=== PATIENT | female | born 2000 ===

== ENCOUNTER → 2020-05-13 10:49 | Outpatient (BNVA) | payer OTHER, SELFPAY | PROVIDERS: Family Provider Family Medicine; PCP Family Medicine; Visit Provider Family Medicine | DX: R30.0 Dysuria (principal) | CPT/HCPCS: 81000; 81025; 87077; 87086; 87184 ==

== ENCOUNTER → 2020-12-10 09:39 | Outpatient (BNVA) | payer OTHER, SELFPAY | PROVIDERS: Family Provider Family Medicine; PCP Family Medicine; Visit Provider Family Medicine | DX: Z01.419 Encounter for gynecological examination (general) (routine) without abnormal findings (principal); Z13.6 Encounter for screening for cardiovascular disorders; F41.9 Anxiety disorder, unspecified; R10.13 Epigastric pain; F32.9 Major depressive disorder, single episode, unspecified | CPT/HCPCS: 80053; 84443; 85025; 88175 ==

== ENCOUNTER → 2021-03-23 14:46 | Outpatient (BNVA) | payer OTHER, SELFPAY | PROVIDERS: Family Provider Family Medicine; PCP Family Medicine; Visit Provider Family Medicine | DX: B35.1 Tinea unguium (principal) | CPT/HCPCS: 80053 ==

== ENCOUNTER → 2021-12-09 15:15 | Outpatient (BNVA) | payer BC, SELFPAY | PROVIDERS: Family Provider Family Medicine; PCP Family Medicine; Visit Provider Family Medicine | DX: R87.612 Low grade squamous intraepithelial lesion on cytologic smear of cervix (LGSIL) (principal) | CPT/HCPCS: 88175 ==

== ENCOUNTER 2022-06-14 09:23 | Outpatient (CLI) | payer BC, SELFPAY ==
--- NOTE | 2022-06-14 09:15 | USCV_ITS ---
Anastasia Acosta (Bates) Age: 21 Gender: F : 2000 Exam Date: 06/14/2022 10:09 Ordering Phys: Tomasa Norris MD ([email or web address]) Technologist: JIMENA Exam Location: [facility] [place] Indication: PRE SYNCOPE BP: 104 / 68 HR: 80 Rhythm: Sinus Technical Quality: Adequate MEASUREMENTS (Male / Female) Normal Values 2D ECHO LVOT Diameter 2.0 cm LV Ejection Fraction MOD 2C 64.1 % LV Ejection Fraction 2C AL 64.6 % LA Diameter 2.5 cm LA Width 3.5 cm LA Height 3.4 cm RA Width 2.8 cm RA Height 3.1 cm Aorta at Sinotubular Diameter 2.1 cm IVC Diameter 1.7 cm M-MODE Aortic Annulus Diameter 2.4 cm LA Ao Ratio MM 1.1 MV E Point Septal Separation 0.4 cm DOPPLER AV Peak Velocity 114.0 cm/s LVOT Peak Velocity 86.0 cm/s AV Area Cont Eq vti 2.3 cm squared AV Area Cont Eq pk 2.4 cm squared MV Peak Velocity 89.0 cm/s MV Area PHT 4.1 cm squared Mitral E to A Ratio 1.2 MV E' Velocity 46.5 cm/s Mitral E to MV E' Ratio 4.5 Mitral E to LV E' Lateral Ratio 4.0 Mitral E to LV E' Septal Ratio 5.1 TR Peak Velocity 133.9 cm/s TR Peak Gradient 7.2 mmHg TR Mean Velocity 105.7 cm/s TR Mean Gradient 4.8 mmHg TR Velocity Time Integral 36.6 cm TV Peak E Velocity 65.0 cm/s Right Atrial Pressure 3.0 mmHg Pulmonary Artery Systolic Pressu 10.2 mmHg PV Peak Velocity 92.0 cm/s RV Acceleration Time 0.1 s RV Ejection Time 0.3 s RV AcT/ET 0.4 FINDINGS Left Ventricle Normal left ventricular size, systolic function and wall thickness, with no regional wall motion abnormalities. Left ventricular ejection fraction is estimated at 65 %. Normal diastolic function. Right Ventricle Normal right ventricular size and systolic function. Right ventricular systolic pressure 10.2 mmHg. Right Atrium Normal right atrial size. Left Atrium Normal left atrial size. Mitral Valve Structurally normal mitral valve. No mitral valve stenosis. No mitral valve regurgitation. Aortic Valve Structurally normal trileaflet aortic valve. No aortic valve stenosis. No aortic valve regurgitation. Tricuspid Valve Structurally normal tricuspid valve. No tricuspid valve stenosis. Trace tricuspid valve regurgitation. Pulmonic Valve Structurally normal pulmonic valve. No pulmonary valve stenosis. No pulmonary valve regurgitation. Pericardium No pericardial effusion. Aorta Normal size aortic root and proximal ascending aorta. IVC Normal IVC dimension with >50% respiratory change of the inferior vena cava. CONCLUSIONS 1. Normal left ventricular size, systolic function and wall thickness, with no regional wall motion abnormalities. Left ventricular ejection fraction is estimated at 65 %. Normal diastolic function. 2. Normal right ventricular size and systolic function. 3. No significant valvular abnormality. 4. No prior similar studies to compare. Tomasa Norris MD (Electronically Signed) Final Date: 18 June 2022 18:13 S
== END 2022-06-14 09:24 | disposition home or self-care (01) ==
LOC: RAD 09:24
PROVIDERS: Family Provider Family Medicine; PCP Family Medicine; Visit Provider Internal Medicine Cardiovascular Disease
DX: R55 Syncope and collapse (principal)
CPT/HCPCS: 93306

== ENCOUNTER → 2022-09-09 09:12 | Outpatient (BNVA) | payer BC, SELFPAY | PROVIDERS: Family Provider Family Medicine; PCP Family Medicine; Visit Provider Nurse Practitioner Family | DX: J02.9 Acute pharyngitis, unspecified (principal) | CPT/HCPCS: 87071; 87880 ==

== ENCOUNTER → 2023-05-03 08:19 | Outpatient (BNVA) | payer BC, SELFPAY | PROVIDERS: Family Provider Family Medicine; PCP Family Medicine; Visit Provider Nurse Practitioner Family | DX: R39.9 Unspecified symptoms and signs involving the genitourinary system (principal); Z20.2 Contact with and (suspected) exposure to infections with a predominantly sexual mode of transmission | CPT/HCPCS: 81000; 87491; 87591 ==

== ENCOUNTER 2023-06-12 01:46 | Emergency (ER) | payer BC, SELFPAY ==
[2023-06-12 01:53] VITALS: BP 124/75; PULSE 56; RESP 14; TEMP 36.6; O2SAT 100
--- NOTE | 2023-06-12 02:30 | CTR_ITS ---
PROCEDURE INFORMATION: Exam: CT Abdomen And Pelvis Without Contrast Exam date and time: 06/12/2023 3:16 AM Age: 22 years old Clinical indication: Abdominal pain; Patient HX: C/O left flank pain. Microhematuria. ; Additional info: L flank pain TECHNIQUE: Imaging protocol: Computed tomography of the abdomen and pelvis without contrast. Radiation optimization: All CT scans at this facility use at least one of these dose optimization techniques: automated exposure control; mA and/or kV adjustment per patient size (includes targeted exams where dose is matched to clinical indication); or iterative reconstruction. REPORTING DATA: Count of CT and Cardiac NM exams in prior 12 months: This patient has received 0 known CTs and 0 known cardiac nuclear medicine studies in the 12 months prior to the current study. COMPARISON: No relevant prior studies available. RADIATION DOSE METRICS: Total DLP (mGy-cm): 311 FINDINGS: Lungs: Clear basilar lung parenchyma. Pleural spaces: No pleural fluid. Heart: Normal heart size. Liver: Normal configuration. Homogeneous parenchyma. Gallbladder and bile ducts: No regional inflammation. No calcified stones. No ductal dilation. Pancreas: Normal. No ductal dilation. Spleen: Normal. No splenomegaly. Adrenal glands: Normal configuration. Kidneys and ureters: Kidneys are symmetric without evidence calculus or obstruction. Stomach and bowel: Postprandial stomach. Normal caliber small bowel. Mild fecal retention throughout the colon. Appendix: Normal appendix is confirmed. Intraperitoneal space: No free air. No significant fluid collection. Vasculature: Scattered pelvic phleboliths are noted. Lymph nodes: No enlarged lymph nodes. Urinary bladder: Unremarkable as visualized. Reproductive: Physiologic appearance for age. Bones/joints: No fracture or destructive lesion. Soft tissues: Unremarkable. CT/CT kidney stone [id number] IMPRESSION: No findings of urolithiasis to explain patient's pain. New line moderate volume fecal debris throughout the colon may reflect constipation which could be symptomatic.
[2023-06-12 02:35] LABS: Add Urine Culture? Yes; Bacteria Urine TRACE /hpf; Bilirubin Urine 1+ (Negative); Blood Urine 3+ (Negative); Glucose Urine UA Norm (Normal); Ketones Urine 1+ (Negative); Leukocyte Esterase Urine 2+ (Negative); Mucus Urine 1+ /hpf; Nitrate Urine Positive (Negative); Protein Urine 3+ (Negative); RBC Urine 0-4 /hpf (0-2); Squamous Epithelial Cell Urine 0-4 /hpf (0-5); Urine Appearance Turbid (CLEAR); Urine Color Yellow (Yellow); Urobilinogen Urine 1 mg/dL (Negative); WBC Urine 55-80 /hpf (0-5); pH Urine 6 (5-7)
[2023-06-12 02:36] LABS: Add Urine Microscopic? YES
[2023-06-12] MEDS: sodium chloride 0.9% 1,000 ML 999 ML IV (02:55)
[2023-06-12] MEDS: ondansetron 2 mg/ML SDV 2 mL 4 MG IVP (02:57)
[2023-06-12 02:59] LABS: Basophils # 0.1 10^3/uL (0.0-0.1); Basophils % 0.4 %; Eosinophils # 0.1 10^3/uL (0.0-0.8); Eosinophils % 0.7 %; Hematocrit 43.2 % (36-47); Lymphocytes # 2.4 10^3/uL (0.8-4.8); Lymphocytes % 15.6 %; Mean Corpuscular HGB Conc 33.8 g/dL (30-55); Mean Corpuscular Hemoglobin 30.9 pg (27-33); Mean Corpuscular Volume 91.3 fl (85-98); Mean Platelet Volume 9.9 fL (7.4-10.4); Monocytes % 6.6 %; Neutrophils % 76.4 %; Nucleated Red Blood Cells % 0 %; Platelet Count 243 10^3/cmm (157-399); Red Blood Count 4.73 10^6/uL (3.85-5.65); Red Cell Distribution Width 13.1 % (12.1-15.1); White Blood Count 15.31 10^3/uL (3.29-11.43)
[2023-06-12] MEDS: morphine 4 mg/mL SDV 1 mL IVP (02:59)
[2023-06-12 03:11] LABS: HCG, Serum Qual Negative (Negative)
[2023-06-12 03:19] LABS: Alanine Aminotransferase 9 U/L (0-33); Albumin Level 4.8 g/dL (3.5-5.2); Alkaline Phosphatase 60 U/L (35-105); Aspartate Amino Transferase 14 U/L (0-32); Blood Urea Nitrogen 13 mg/dL (6-20); Calcium 9.9 mg/dL (8.5-10.5); Carbon Dioxide 25 mmol/L (22-29); Chloride 104 mmol/L (98-107); Globulin 2.9 g/dL (1.3-4.6); Glomerular Filtration Rate 76.9 mL/min (90-130); Glucose 151 mg/dL (65-115); Lipase 26 U/L (13-60); Osmolality Calculated 295 mOsm/kg (285-295); Sodium 141 mmol/L (136-145); Total Bilirubin 0.5 mg/dL (0.15-1.2); Total Protein 7.7 g/dL (6.6-8.7)
[2023-06-12] MEDS: ketorolac 30 mg/mL INJ IVP (04:22)
[2023-06-12] MEDS: cefTRIAXone 1,000 MG in sodium chloride 0.9% (plus) 50 ML 100 MG IV (04:23)
[2023-06-12 04:24] VITALS: BP 93/58; PULSE 72; RESP 16; O2SAT 99
--- NOTE | 2023-06-12 04:25 | ED_ITS ---
HPI - Female Genitourinary 2 General: Chief complaint: Urogenital-Female Stated complaint: back and L side pain nausea Time Seen by Provider: 06/12/23 02:22 History of Present Illness: 22-year-old female complains of left fla nk and lower back pain radiating to her abdomen. She has vomited at least twice. No diarrhea. No fever. She was experiencing some burning with urination, and took bladder medication which change the color of her urine. It has not seemed to help her back pain. Associated symptoms: Reports abdominal pain and nausea; Deny headache(s) Review of Systems 2 Const: Denies: fever(s), chills or body aches Eyes: Denies: change in vision Card: Denies: chest pain or palpitations Resp: Denies: dyspnea, productive cough, non-productive cough or wheezing GI: Reports: abdominal pain, nausea and vomiting; Denies: diarrhea or hematochezia : Reports: dysuria and urinary frequency; Denies: difficulty voiding Skin/Breast: Denies: rash Neuro: Denies: headache(s), weakness in extremities, dizziness or confusion PFSH ED 2 PFSH: Medical History Allergic rhinitis Chronic constipation Depression with anxiety Dysuria Family planning Onychomycosis Urticaria Surgical History No pertinent past surgical history Family History Grandfather Stroke Diabetes Murmur, cardiac Grandmother Stroke Mother Hypertension Father No problems noted. Family/Other Hypertension Social History Smoking and tobacco/nicotine status: current some day tobacco/nicotine user (medical cannibus) Alcohol intake: current Alcohol intake frequency: 0-2 Drinks per Day Substance/Drug Use: current Substance/Drug use frequency: Special occassions/opportunity only Physical Exam 2 Const: COMMON NORMALS: no acute distress GENERAL APPEARANCE: cooperative; not ill appearing and not frail appearing HENMT: COMMON NORMALS: normocephalic, atraumatic and Normal external nose present HEAD & SCALP: normocephalic and atraumatic FACE & SINUS: normal facial exam and face symmetric NOSE: Normal external nose present Eye: COMMON NORMALS: Equal, round and reactive pupils present and EOMs intact bilaterally PUPIL: Yes Equal, round and reactive pupils present Neck/C-Spine: GENERAL: Yes trachea midline Chest: CHEST: Yes Symmetrical chest wall rise Resp: COMMON NORMALS: normal respiratory effort, No retractions, No use of accessory muscles and clear to auscultation bilaterally AUSCULTATION: clear to auscultation bilaterally Cardio: COMMON NORMALS: regular rate and regular rhythm RATE: regular rate RHYTHM: regular rhythm GI: COMMON NORMALS: Normal to inspection, nondistended, normoactive bowel sounds present PALPATION: Yes Tenderness to palpation present (GI) Details: LLQ : BLADDER/KIDNEY EXAM: Yes CVA tenderness on the left Back/Pelvis: GENERAL BACK: Yes CVA tenderness Extremity: COMMON NORMALS: no pedal edema Neuro: SMITH COMA SCALE: document GCS findings Cable coma scale eye opening: Spontaneous Smith coma scale verbal response: Orientated Cable coma scale motor response: Obey commands Cable coma scale total score: 15 S ENSORY EXAM: Yes extremities (intact) Psych: COMMON NORMALS: speech normal SPEECH: Yes normal speech Skin: COMMON NORMALS: no rashes or lesions noted GENERAL SKIN EXAM: no rashes or lesions noted Course 2 Vital Signs: Vital signs: Vital Signs Temperature 97.8 F 06/12/23 01:53 Pulse Rate 72 06/12/23 04:24 Respiratory Rate 16 06/12/23 04:24 Blood Pressure 93/58 06/12/23 04:24 Pulse Oximetry 99 06/12/23 04:24 Oxygen Delivery Me thod Room Air 06/12/23 04:24 MDM - Female Medical Decision Making Vitals are stable. White blood cell count is 15. CRP is 3. Urinalysis shows 40-55 white blood cells with nitrate positive and 2+ leukocyte Estrace positive urine. CT reveals no stone or obstruction. She has received IV fluid and IV Rocephin here as well as pain and nausea medication. She is feeling improved. She will be discharged with treatment for pyelonephritis. Close outpatient follow-up return for worsening Lab Data 06/12/23 02:54 06/12/23 02:54 Radiology Impressions Abdomen/Pelvis CT 06/12/23 02:30 IMPRESSION: No findings of urolithiasis to explain patient's pain. New line moderate volume fecal debris throughout the colon may reflect constipation which could be symptomatic. Laboratory Results WBC 15.31 10^3/uL (3.29-11.43) H 06/12/23 02:54 RBC 4.73 10^6/uL (3.85-5.65) 06/12/23 02:54 Hgb 14.60 g/dL (11.27-16.99) 06/12/23 02:54 Hct 43.2 % (36-47) 06/12/23 02:54 MCV 91.3 fl (85-98) 06/12/23 02:54 MCH 30.9 pg (27-33) 06/12/23 02:54 MCHC 33.8 g/dL (30-55) 06/12/23 02:54 RDW 13.1 % (12.1-15.1) 06/12/23 02:54 Plt Count 243 10^3/cmm (157-399) 06/12/23 02:54 MPV 9.9 fL (7.4-10.4) 06/12/23 02:54 Neut % (Auto) 76.4 % 06/12/23 02:54 Lymph % (Auto) 15.6 % 06/12/23 02:54 [place] % (Auto) 6.6 % 06/12/23 02:54 Eos % (Auto) 0.7 % 06/12/23 02:54 Baso % (Auto) 0.4 % 06/12/23 02:54 Neut # (Auto) 11.70 10^3/uL (1.8-7.7) H 06/12/23 02:54 Lymph # (Auto) 2.4 10^3/uL (0.8-4.8) 06/12/23 02:54 [place] # (Auto) 1.0 10^3/uL (0.2-0.9) H 06/12/23 02:54 Eos # (Auto) 0.1 10^3/uL (0.0-0.8) 06/12/23 02:54 Baso # (Auto) 0.1 10^3/uL (0.0-0.1) 06/12/23 02:54 Nucleated RBC % (auto) 0 % 06/12/23 02:54 Nucleated RBCs # 0.0 /100WBC 06/12/23 02:54 Sodium 141 mmol/L (136-145) 06/12/23 02:54 Potassium 4.0 mmol/L (3.5-5.1) 06/12/23 02:54 Chloride 104 mmol/L (98-107) 06/12/23 02:54 Carbon Dioxide 25 mmol/L (22-29) 06/12/23 02:54 Anion Gap 16.0 (5-19) 06/12/23 02:54 BUN 13 mg/dL (6-20) 06/12/23 02:54 Creatinine 0.9 mg/dL (0.5-0.9) 06/12/23 02:54 GFR Calculation 76.9 mL/min (90-130) L 06/12/23 02:54 Glucose 151 mg/dL (65-115) H 06/12/23 02:54 Calculated Osmolality 295 mOsm/kg (285-295) 06/12/23 02:54 Calcium 9.9 mg/dL (8.5-10.5) 06/12/23 02:54 Total Bilirubin 0.5 mg/dL (0.15-1.2) 06/12/23 02:54 AST 14 U/L (0-32) 06/12/23 02:54 ALT 9 U/L (0-33) 06/12/23 02:54 Alkaline Phosphatase 60 U/L (35-105) 06/12/23 02:54 C-Reactive Protein 3.0 mg/L (0.0-4.9) 06/12/23 02:54 Total Protein 7.7 g/dL (6.6-8.7) 06/12/23 02:54 Albumin 4.8 g/dL (3.5-5.2) 06/12/23 02:54 Globulin 2.9 g/dL (1.3-4.6) 06/12/23 02:54 Lipase 26 U/L (13-60) 06/12/23 02:54 HCG, Qual Negative (Negative) 06/12/23 02:54 Urine Color Yellow (Yellow) 06/12/23 02:07 Urine Appearance Turbid (CLEAR) A 06/12/23 02:07 Urine pH 6 (5-7) 06/12/23 02:07 Ur Specific [place] 1.020 (1.005-1.030) 06/12/23 02:07 Urine Protein 3+ (Negative) H 06/12/23 02:07 Urine Glucose (UA) Norm (Normal) 06/12/23 02:07 Urine Ketones 1+ (Negative) H 06/12/23 02:07 Urine Blood 3+ (Negative) H 06/12/23 02:07 Urine Nitrate Positive (Negative) H 06/12/23 02:07 Urine Bilirubin 1+ (Negative) H 06/12/23 02:07 Urine Urobilinogen 1 mg/dL (Negative) H 06/12/23 02:07 Ur Leukocyte Esterase 2+ (Negative) H 06/12/23 02:07 Urine RBC 0-4 /hpf (0-2) H 06/12/23 02:07 Urine WBC 55-80 /hpf (0-5) H 06/12/23 02:07 Ur Squamous Epith Cells 0-4 /hpf (0-5) H 06/12/23 02:07 Amorphous Sediment Not Reportable 06/12/23 02:07 Urine Bacteria Trace /hpf (NONE) 06/12/23 02:07 Urine Mucus 1+ /hpf 06/12/23 02:07 All radiology interpretation(s) finalized by discharge Discharge Plan Discharge Patient Disposition: Home Clinical Impression: Pyelonephritis Condition: Stable Prescriptions: New cefdinir 300 mg capsule 300 mg PO BID Qty: 14 0RF ondansetron 4 mg film 4 mg PO DAILY PRN (Reason: nausea and vomiting) Qty: 10 0RF hydrocodone-acetaminophen 5-325 mg tablet 1 tab PO Q8H PRN (Reason: pain) Qty: 7 0RF No Action ascorbic acid (vitamin C) 500 mg tablet 500 mg PO DAILY Saccharomyces boulardii [Daily Probiotic (S. boulardii)] 250 mg capsule 5,000 mmu cells PO DAILY desogestrel-ethinyl estradiol 0.15-0.03 mg tablet 1 tab PO DAILY Qty: 84 3RF Discharge Orders: Discharge ED (Routine); Ordered 06/12/23 Ordered By: Duane Naranjo Referrals: Marlene Vasquez DO [Primary Care Provider] - 1-3 days Patient Instructions: Kidney Infection (ED), Opioid Safety, Pain Management Coding Level of Care Code ED Buffer Automatic for Chg Yuli
[2023-06-12 05:04] VITALS: BP 100/63; PULSE 65; RESP 18; O2SAT 98
== END 2023-06-12 05:03 | disposition home or self-care (01) ==
PROVIDERS: Emergency Provider Emergency Medicine; PCP Family Medicine
DX: N12 Tubulo-interstitial nephritis, not specified as acute or chronic (principal); Z72.0 Tobacco use
CPT/HCPCS: 74176; 80053; 81001; 83690; 84703; 85025; 86140; 87077; 87086; 87186; 96374; 96375; 99285; J0696; J1885; J2270; J2405; J7030